=== PATIENT | female | born 1950 | race African-American/Black ===

== ENCOUNTER 2017-07-11 13:35 | Emergency (ER) | payer MEDICARE, MEDICAID ==
[~2017-07-11] VITALS: Ht 165.1 cm; Wt 90.0 kg
[~2017-07-11 13:35] MED LIST: CARI350T27 PO; CLON0.1T PO; CLON2TAB4 PO; CLOP75TA33 PO; FURO40TA5 PO; GLIP5TAB12 PO; KEPPSOL PO; LEVO125T8 PO; LISI-604 PO; METO10TA3 PO; NITR0.4T SL; ONDA4TAB5 PO; PANT40TA4 PO; [UNRECOGNIZED DRUG - CODE] PO
[2017-07-11] MEDS ORDERED: SODIUM CHLORIDE 0.9% 1,000 ML IV ONE (14:32)
[2017-07-11 16:06] LABS: BASOPHILS % 0.7 % (0.0-2.0); EOSINOPHILS % 1.2 % (0.0-5.0); HEMATOCRIT. 33.8 % (36.0-48.0); HEMOGLOBIN. 10.8 g/dL (12.0-16.0); LYMPHOCYTES % 41.7 % (20.0-50.0); MEAN CORPUSCULAR HEMOGLOBIN 23.3 pg (28.0-32.0); MEAN CORPUSCULAR VOLUME 72.9 fL (81.0-99.0); MEAN PLATELET VOLUME 8.1 fl (7.4-10.4); MONOCYTES % 9.1 % (2.0-8.0); NEUTROPHILS % 47.3 % (40.0-76.0); PLATELET 318 x1000/uL (130-400); RED BLOOD CELL COUNT 4.64 mill/uL (4.2-5.4); RED CELL DISTRIBUTION WIDTH 15.5 % (11.6-14.6)
[2017-07-11 16:09] LABS: CHLORIDE 110 mEq/L (98-107)
[2017-07-11 16:16] LABS: AMMONIA 28 uMol/L (<32)
[2017-07-11 16:18] LABS: CARBON DIOXIDE 24 mEq/L (21-32); ETHANOL BLOOD < 10 mg/dL
[2017-07-11 17:08] LABS: CLARITY URINE CLEAR (CLEAR); COLOR URINE YELLOW (YELLOW); GLUCOSE URINE NEGATIVE (NEGATIVE); KETONES URINE NEGATIVE (NEGATIVE); LEUKOCYTE ESTERASE URINE 2+ (NEGATIVE); NITRITE URINE NEGATIVE (NEGATIVE); OCCULT BLOOD URINE TRACE (NEGATIVE); PH URINE 6.5 (4.5-8.0); PROTEIN URINE NEGATIVE (NEGATIVE); SPECIFIC GRAVITY URINE 1.017 (1.005-1.030); UROBILINOGEN URINE 0.2 E.U./dL (0.2-1.0)
[2017-07-11 17:23] LABS: *AMPHETAMINES SCREEN URINE NEGATIVE (NEGATIVE); *BARBITURATES SCREEN URINE NEGATIVE (NEGATIVE); *BENZODIAZEPINES SCREEN URINE NEGATIVE (NEGATIVE); *COCAINE SCREEN URINE NEGATIVE (NEGATIVE); CANNABINOID URINE SCREEN PRESUMTIVE POSITIVE (NEGATIVE); METHADONE URINE SCREEN NEGATIVE (NEGATIVE); OPIATES URINE SCREEN PRESUMTIVE POSITIVE (NEGATIVE); PHENCYCLIDINE URINE SCREEN NEGATIVE (NEGATIVE)
[2017-07-11 21:13] VITALS: BP 180/93
== END 2017-07-11 21:10 | disposition left against medical advice (07) ==
LOC: ER 13:51 → CANBEDREQ 23:23
DX: G93.40 Encephalopathy, unspecified (principal); T40.2X2A Poisoning by other opioids, intentional self-harm, initial encounter; D50.9 Iron deficiency anemia, unspecified; F12.10 Cannabis abuse, uncomplicated; K21.9 Gastro-esophageal reflux disease without esophagitis; E03.9 Hypothyroidism, unspecified; I50.9 Heart failure, unspecified; I11.0 Hypertensive heart disease with heart failure; Z90.49 Acquired absence of other specified parts of digestive tract; Z88.0 Allergy status to penicillin; Z88.6 Allergy status to analgesic agent; Y92.89 Other specified places as the place of occurrence of the external cause
CPT/HCPCS: 36415; 70450; 72125; 80053; 80305; 80307; 80329; 81001; 82140; 82962; 85025; 96360; 96361; 99285; G0482; J7030

== ENCOUNTER 2017-08-17 21:17 | Emergency (ER) | payer MEDICARE, MEDICAID ==
[~2017-08-17] VITALS: Ht 157.5 cm; Wt 90.6 kg
[2017-08-17] MEDS ORDERED: HYDROCODONE/ACETAMINOPHEN 10/325MG TABLET PO ONE (23:15)
[2017-08-18] MEDS ORDERED: HYDROCODONE/ACETAMINOPHEN 10/325MG TABLET PO NR (04:00)
[2017-08-18 06:00] VITALS: BP 138/72
== END 2017-08-18 06:29 | disposition home or self-care (01) ==
LOC: ER 21:17
DX: S83.92XA Sprain of unspecified site of left knee, initial encounter (principal); I10 Essential (primary) hypertension; I25.2 Old myocardial infarction; M19.90 Unspecified osteoarthritis, unspecified site; Z88.0 Allergy status to penicillin; Z86.73 Personal history of transient ischemic attack (TIA), and cerebral infarction without residual deficits; Z88.4 Allergy status to anesthetic agent; Z88.1 Allergy status to other antibiotic agents; Z88.8 Allergy status to other drugs, medicaments and biological substances; Z79.01 Long term (current) use of anticoagulants; W10.9XXA Fall (on) (from) unspecified stairs and steps, initial encounter; Y93.01 Activity, walking, marching and hiking; Y92.89 Other specified places as the place of occurrence of the external cause; Y99.8 Other external cause status
CPT/HCPCS: 29505; 73560; 73590; 73610; 73620; 99284

== ENCOUNTER 2017-09-25 15:23 | Emergency (ER) | payer MEDICARE, MEDICAID ==
[~2017-09-25] VITALS: Ht 160 cm; Wt 60.0 kg
[2017-09-25 15:28] VITALS: BP 137/82
== END 2017-09-25 17:06 | disposition left against medical advice (07) ==
LOC: ER 15:35
DX: G40.909 Epilepsy, unspecified, not intractable, without status epilepticus (principal); Z86.73 Personal history of transient ischemic attack (TIA), and cerebral infarction without residual deficits; I25.2 Old myocardial infarction; Z88.6 Allergy status to analgesic agent; Z88.5 Allergy status to narcotic agent; Z88.8 Allergy status to other drugs, medicaments and biological substances; Z88.0 Allergy status to penicillin; Z88.1 Allergy status to other antibiotic agents
CPT/HCPCS: 99283

== ENCOUNTER 2018-06-27 14:59 | Inpatient (IN) | payer MEDICARE, MEDICAID ==
[~2018-06-27] VITALS: Ht 157.5 cm; Wt 89.8 kg
[~2018-06-27 14:59] MED LIST changes: +CLON2TAB11 PO; -CLON2TAB4 PO
[2018-06-27] MEDS ORDERED: SODIUM CHLORIDE 0.9% 1,000 ML IV ONE (15:36)
[2018-06-27 16:51] LABS: BASOPHILS % 0.6 % (0.0-2.0); EOSINOPHILS % 0.2 % (0.0-5.0); HEMATOCRIT. 44.5 % (36.0-48.0); HEMOGLOBIN. 14.3 g/dL (12.0-16.0); LYMPHOCYTES % 32.7 % (20.0-50.0); MEAN CORPUSCULAR HEMOGLOBIN 24.9 pg (28.0-32.0); MEAN CORPUSCULAR VOLUME 77.8 fL (81.0-99.0); MEAN PLATELET VOLUME 8.4 fl (7.4-10.4); MONOCYTES % 7.2 % (2.0-8.0); NEUTROPHILS % 59.3 % (40.0-76.0); PLATELET 281 x1000/uL (130-400); RED BLOOD CELL COUNT 5.72 mill/uL (4.2-5.4)
[2018-06-27 16:54] LABS: CHLORIDE 105 mEq/L (98-107)
[2018-06-27 16:55] LABS: PROTHROMBIN TIME 10.3 sec (9.1-11.1)
[2018-06-27 16:59] LABS: ETHANOL BLOOD < 10 mg/dL
[2018-06-27 17:05] LABS: PHENOBARBITAL < 2.1 ug/mL (15.0-40.0); VALPROIC ACID < 3.0 ug/mL (50-100)
[2018-06-27 17:14] LABS: CARBAMAZEPINE < 0.5 ug/mL (4-12)
[2018-06-27] MEDS ORDERED: LEVETIRACETAM 500MG PREMIX 100 ML IV ONE (17:30)
[2018-06-27] MEDS ORDERED: ONDANSETRON HCL 4MG/2ML INJ IV ONE (17:30)
[2018-06-27] MEDS ORDERED: MORPHINE SULFATE 2 MG/ML CPJ (NOT FOR IM USE) IV ONE (17:30)
[2018-06-27] MEDS ORDERED: LORAZEPAM 2MG/ML CPJ IV PRN (18:00)
[2018-06-27] MEDS ORDERED: NA PHOS,M-B/NA PHOS,DI-BA ENEMA 118ML PR PRN (18:00)
[2018-06-27] MEDS ORDERED: MAGNESIUM/ALUMINUM HYDROXIDE/SIMETHICONE 30ML UDC PO PRN (18:00)
[2018-06-27] MEDS ORDERED: ACETAMINOPHEN 325MG TABLET PO PRN (18:00)
[2018-06-27] MEDS ORDERED: GUAIFENESIN 200MG/10ML SUGAR FREE UDC PO PRN (18:00)
[2018-06-27] MEDS ORDERED: DEXTROSE 50% WATER 50ML SYRINGE IV PRN (18:00)
[2018-06-27 19:10] LABS: CLARITY URINE CLEAR (CLEAR); COLOR URINE YELLOW (YELLOW); KETONES URINE 2+ (NEGATIVE); LEUKOCYTE ESTERASE URINE 1+ (NEGATIVE); NITRITE URINE NEGATIVE (NEGATIVE); OCCULT BLOOD URINE NEGATIVE (NEGATIVE); PH URINE 5.5 (4.5-8.0); PROTEIN URINE 2+ (NEGATIVE); SPECIFIC GRAVITY URINE 1.035 (1.005-1.030)
[2018-06-27 19:25] LABS: *AMPHETAMINES SCREEN URINE NEGATIVE (NEGATIVE); *BARBITURATES SCREEN URINE NEGATIVE (NEGATIVE)
[2018-06-27 19:26] LABS: *BENZODIAZEPINES SCREEN URINE NEGATIVE (NEGATIVE); *COCAINE SCREEN URINE NEGATIVE (NEGATIVE); CANNABINOID URINE SCREEN PRESUMTIVE POSITIVE (NEGATIVE); METHADONE URINE SCREEN NEGATIVE (NEGATIVE); OPIATES URINE SCREEN NEGATIVE (NEGATIVE); PHENCYCLIDINE URINE SCREEN NEGATIVE (NEGATIVE)
[2018-06-27] MEDS: INSULIN LISPRO 100 UNITS/ML SUBCUT SCH (21:00)
[2018-06-27] MEDS: BLOOD SUGAR DIAGNOSTIC STRIP TEST SCH (21:00)
[2018-06-27] MEDS ORDERED: NITROGLYCERIN 0.4MG TABLET SL SL PRN (21:00)
[2018-06-27 21:44] VITALS: BP 160/95
[2018-06-27 22:00] VITALS: BP 160/95
[2018-06-27] MEDS ORDERED: PHENYTOIN SODIUM 1,000 MG in SODIUM CHLORIDE 0.9% 100 ML IV SCH (22:00)
[2018-06-27] MEDS: CLONIDINE 0.1MG TABLET PO PRN (23:10)
[2018-06-27] MEDS: ASCORBIC ACID 500 MG TABLET PO SCH (23:10)
[2018-06-27] MEDS: FAMOTIDINE 20MG TABLET PO SCH (23:10)
[2018-06-27] MEDS: ENOXAPARIN 40MG/0.4ML SYR SUBCUT SCH (23:11)
[2018-06-27] MEDS: MORPHINE SULFATE 4 MG/ML CPJ (NOT FOR IM USE) IV PRN (23:18)
[2018-06-27 23:41] LABS: CREATINE KINASE MB FRACTION 5.1 ng/mL (0.5-3.6)
[2018-06-27] MEDS: ZOLPIDEM TARTRATE 5MG TABLET PO PRN (23:45)
[2018-06-28 00:47] VITALS: BP 188/94
[2018-06-28] MEDS ORDERED: LEVE500T19 PO (04:16)
[2018-06-28] MEDS ORDERED: FERR325T6 PO (04:16)
[2018-06-28] MEDS ORDERED: DIPH25TA23 PO (04:16)
[2018-06-28 04:30] VITALS: BP 160/82
[2018-06-28] MEDS: CLONIDINE 0.1MG TABLET PO PRN (06:11)
[2018-06-28] MEDS: BLOOD SUGAR DIAGNOSTIC STRIP TEST SCH ×4 (06:55→22:16)
[2018-06-28 08:00] VITALS: BP 135/81
[2018-06-28] MEDS: INSULIN LISPRO 100 UNITS/ML SUBCUT SCH ×4 (08:10→22:16)
[2018-06-28] MEDS ORDERED: LEVETIRACETAM 500MG PREMIX 100 ML IV SCH (09:00)
[2018-06-28] MEDS: ASCORBIC ACID 500 MG TABLET PO SCH ×2 (09:01→22:17)
[2018-06-28] MEDS: CLOPIDOGREL 75MG TABLET PO SCH (09:01)
[2018-06-28] MEDS: FAMOTIDINE 20MG TABLET PO SCH ×2 (09:01→22:17)
[2018-06-28] MEDS: ONDANSETRON HCL 4MG/2ML INJ IV PRN (09:01)
[2018-06-28] MEDS: ZINC SULFATE 220 MG ( 50 ) CAPSULE PO SCH (09:01)
[2018-06-28 09:04] LABS: CREATINE KINASE MB FRACTION 4.3 ng/mL (0.5-3.6)
[2018-06-28] MEDS: MORPHINE SULFATE 4 MG/ML CPJ (NOT FOR IM USE) IV PRN ×2 (09:05→17:45)
[2018-06-28] MEDS: LEVETIRACETAM 500 MG in SODIUM CHLORIDE 0.9% 100 ML IV SCH ×2 (09:05→22:21)
[2018-06-28 12:00] VITALS: BP 131/89
[2018-06-28 16:00] VITALS: BP 149/77
[2018-06-28] MEDS: SUCRALFATE 1 G/10 ML UDC PO SCH ×2 (17:25→22:17)
[2018-06-28] MEDS: METOCLOPRAMIDE HCL 10MG TABLET PO SCH ×2 (17:25→22:17)
[2018-06-28 20:00] VITALS: BP 154/92
[2018-06-28] MEDS: DIPHENHYDRAMINE 50MG/ML VIAL IV PRN (21:13)
[2018-06-28] MEDS: ENOXAPARIN 40MG/0.4ML SYR SUBCUT SCH (22:18)
[2018-06-29] VITALS: BP 145/80
[2018-06-29] MEDS: ZOLPIDEM TARTRATE 5MG TABLET PO PRN (00:02)
[2018-06-29] MEDS: MORPHINE SULFATE 4 MG/ML CPJ (NOT FOR IM USE) IV PRN ×4 (00:37→20:22)
[2018-06-29 04:00] VITALS: BP 188/89
[2018-06-29] MEDS: DIPHENHYDRAMINE 50MG/ML VIAL IV PRN ×4 (04:28→20:21)
[2018-06-29] MEDS: BLOOD SUGAR DIAGNOSTIC STRIP TEST SCH ×4 (06:41→20:23)
[2018-06-29] MEDS: INSULIN LISPRO 100 UNITS/ML SUBCUT SCH ×4 (06:42→20:23)
[2018-06-29] MEDS: CLONIDINE 0.1MG TABLET PO PRN ×2 (06:46→12:33)
[2018-06-29] MEDS: SUCRALFATE 1 G/10 ML UDC PO SCH ×4 (07:55→20:21)
[2018-06-29] MEDS: METOCLOPRAMIDE HCL 10MG TABLET PO SCH ×4 (07:56→20:21)
[2018-06-29 08:00] VITALS: BP_SYST 156; BP_SYST 177; BP_DIAS 101; BP_DIAS 72
[2018-06-29] MEDS: ZINC SULFATE 220 MG ( 50 ) CAPSULE PO SCH (08:53)
[2018-06-29] MEDS: FAMOTIDINE 20MG TABLET PO SCH ×2 (08:53→20:21)
[2018-06-29] MEDS: ASCORBIC ACID 500 MG TABLET PO SCH ×2 (08:53→20:21)
[2018-06-29] MEDS: CLOPIDOGREL 75MG TABLET PO SCH (08:53)
[2018-06-29] MEDS: LEVETIRACETAM 500 MG in SODIUM CHLORIDE 0.9% 100 ML IV SCH ×2 (08:53→21:31)
[2018-06-29 12:00] VITALS: BP 186/90
[2018-06-29] MEDS: CARISOPRODOL 350 MG TABLET PO PRN (12:33)
[2018-06-29] MEDS: LEVOTHYROXINE SODIUM 125MCG TABLET PO SCH (12:42)
[2018-06-29 16:00] VITALS: BP 147/82
[2018-06-29 20:00] VITALS: BP 160/97
[2018-06-29] MEDS: ONDANSETRON HCL 4MG/2ML INJ IV PRN (20:32)
[2018-06-29] MEDS: ENOXAPARIN 40MG/0.4ML SYR SUBCUT SCH (21:31)
[2018-06-30] VITALS: BP 179/95
[2018-06-30] MEDS: CARISOPRODOL 350 MG TABLET PO PRN ×3 (00:35→23:24)
[2018-06-30] MEDS: CLONIDINE 0.1MG TABLET PO PRN ×3 (00:41→23:35)
[2018-06-30 04:00] VITALS: BP 149/94
[2018-06-30] MEDS: MORPHINE SULFATE 4 MG/ML CPJ (NOT FOR IM USE) IV PRN ×3 (06:41→21:45)
[2018-06-30] MEDS: DIPHENHYDRAMINE 50MG/ML VIAL IV PRN ×2 (06:42→17:32)
[2018-06-30] MEDS: METOCLOPRAMIDE HCL 10MG TABLET PO SCH ×4 (06:42→21:45)
[2018-06-30] MEDS: SUCRALFATE 1 G/10 ML UDC PO SCH ×4 (06:42→21:45)
[2018-06-30] MEDS: LEVOTHYROXINE SODIUM 125MCG TABLET PO SCH (06:42)
[2018-06-30] MEDS: BLOOD SUGAR DIAGNOSTIC STRIP TEST SCH ×4 (06:42→21:00)
[2018-06-30 08:00] VITALS: BP 173/94
[2018-06-30] MEDS: INSULIN LISPRO 100 UNITS/ML SUBCUT SCH ×4 (08:10→21:00)
[2018-06-30] MEDS: FAMOTIDINE 20MG TABLET PO SCH ×2 (09:00→21:45)
[2018-06-30] MEDS: ASCORBIC ACID 500 MG TABLET PO SCH ×2 (09:00→21:45)
[2018-06-30] MEDS: ZINC SULFATE 220 MG ( 50 ) CAPSULE PO SCH (09:00)
[2018-06-30] MEDS: CLOPIDOGREL 75MG TABLET PO SCH (09:00)
[2018-06-30] MEDS: LEVETIRACETAM 500 MG in SODIUM CHLORIDE 0.9% 100 ML IV SCH ×2 (09:41→21:46)
[2018-06-30] MEDS ORDERED: LIDOCAINE HCL 1% 20ML VIAL (Pyxis) INJ ONE (11:12)
[2018-06-30] MEDS ORDERED: GLUCAGON,HUMAN RECOMBINANT 1MG/VIAL IM SCH (11:15)
[2018-06-30] MEDS ORDERED: NON FORMULARY PATIENT HOME MED EA XX SCH (11:15)
[2018-06-30] MEDS ORDERED: EZ-HD SUSPENSION(BARIUM SULFATE 340GM) PO ONE (11:48)
[2018-06-30 12:00] VITALS: BP 144/93
[2018-06-30 16:00] VITALS: BP_SYST 129; BP_SYST 178; BP_DIAS 63; BP_DIAS 92
[2018-06-30 20:00] VITALS: BP 166/90
[2018-06-30] MEDS: ENOXAPARIN 40MG/0.4ML SYR SUBCUT SCH (21:46)
[2018-07-01] VITALS: BP 173/99
[2018-07-01] MEDS: DIPHENHYDRAMINE 50MG/ML VIAL IV PRN ×3 (00:01→19:47)
[2018-07-01] MEDS: MORPHINE SULFATE 4 MG/ML CPJ (NOT FOR IM USE) IV PRN ×2 (03:51→14:59)
[2018-07-01 04:00] VITALS: BP 160/90
[2018-07-01] MEDS: BLOOD SUGAR DIAGNOSTIC STRIP TEST SCH ×4 (07:12→20:49)
[2018-07-01] MEDS: SUCRALFATE 1 G/10 ML UDC PO SCH ×4 (07:40→20:36)
[2018-07-01] MEDS: METOCLOPRAMIDE HCL 10MG TABLET PO SCH ×4 (07:40→20:36)
[2018-07-01 08:00] VITALS: BP 138/87
[2018-07-01] MEDS: INSULIN LISPRO 100 UNITS/ML SUBCUT SCH ×4 (08:02→21:14)
[2018-07-01] MEDS ORDERED: EZ-HD SUSPENSION(BARIUM SULFATE 340GM) PO ONE (09:45)
[2018-07-01] MEDS: LEVETIRACETAM 500 MG in SODIUM CHLORIDE 0.9% 100 ML IV SCH ×2 (11:21→21:03)
[2018-07-01 12:00] VITALS: BP 149/94
[2018-07-01] MEDS: FAMOTIDINE 20MG TABLET PO SCH ×2 (14:34→20:36)
[2018-07-01] MEDS: ASCORBIC ACID 500 MG TABLET PO SCH ×2 (14:35→20:35)
[2018-07-01] MEDS: CLOPIDOGREL 75MG TABLET PO SCH (14:35)
[2018-07-01] MEDS: ZINC SULFATE 220 MG ( 50 ) CAPSULE PO SCH (14:35)
[2018-07-01] MEDS: LEVOTHYROXINE SODIUM 125MCG TABLET PO SCH (14:35)
[2018-07-01] MEDS: CLONIDINE 0.1MG TABLET PO PRN (15:15)
[2018-07-01 16:00] VITALS: BP 149/99
[2018-07-01] MEDS: ONDANSETRON HCL 4MG/2ML INJ IV PRN (16:22)
[2018-07-01] MEDS: CARISOPRODOL 350 MG TABLET PO PRN (16:22)
[2018-07-01 20:00] VITALS: BP 154/83
[2018-07-01] MEDS: ENOXAPARIN 40MG/0.4ML SYR SUBCUT SCH (20:36)
[2018-07-01] MEDS: ZOLPIDEM TARTRATE 5MG TABLET PO PRN (23:14)
[2018-07-02] VITALS: BP 155/105
[2018-07-02 04:00] VITALS: BP 146/92
[2018-07-02] MEDS: DIPHENHYDRAMINE 50MG/ML VIAL IV PRN ×3 (05:03→20:33)
[2018-07-02] MEDS: BLOOD SUGAR DIAGNOSTIC STRIP TEST SCH ×4 (05:24→20:26)
[2018-07-02] MEDS: CARISOPRODOL 350 MG TABLET PO PRN (06:16)
[2018-07-02] MEDS: DOCUSATE SODIUM 100MG CAPSULE PO PRN (06:16)
[2018-07-02 08:00] VITALS: BP 150/91
[2018-07-02] MEDS: INSULIN LISPRO 100 UNITS/ML SUBCUT SCH ×4 (08:08→20:27)
[2018-07-02] MEDS: ASCORBIC ACID 500 MG TABLET PO SCH ×2 (08:20→20:26)
[2018-07-02] MEDS: MORPHINE SULFATE 4 MG/ML CPJ (NOT FOR IM USE) IV PRN (08:20)
[2018-07-02] MEDS: LEVOTHYROXINE SODIUM 125MCG TABLET PO SCH (08:20)
[2018-07-02] MEDS: METOCLOPRAMIDE HCL 10MG TABLET PO SCH ×4 (08:20→20:26)
[2018-07-02] MEDS: CLOPIDOGREL 75MG TABLET PO SCH (08:20)
[2018-07-02] MEDS: LEVETIRACETAM 500 MG in SODIUM CHLORIDE 0.9% 100 ML IV SCH (08:20)
[2018-07-02] MEDS: FAMOTIDINE 20MG TABLET PO SCH ×2 (08:20→20:26)
[2018-07-02] MEDS: ZINC SULFATE 220 MG ( 50 ) CAPSULE PO SCH (08:20)
[2018-07-02] MEDS: SUCRALFATE 1 G/10 ML UDC PO SCH ×4 (08:26→20:33)
[2018-07-02] MEDS: CLONIDINE 0.1MG TABLET PO PRN (11:06)
[2018-07-02 12:00] VITALS: BP 138/78
[2018-07-02] MEDS: LISINOPRIL 20MG TABLET PO SCH (14:25)
[2018-07-02] MEDS: CLONIDINE 0.1MG TABLET PO SCH (14:25)
[2018-07-02 16:00] VITALS: BP 117/78
[2018-07-02] MEDS: MULTIVITAMINS,THER W-MINERALS TABLET PO SCH (17:14)
[2018-07-02] MEDS: FOLIC ACID 1MG TABLET PO SCH (17:14)
[2018-07-02] MEDS: THIAMINE HCL 100MG TABLET PO SCH (17:14)
[2018-07-02] MEDS: ZONISAMIDE 100MG CAPSULE PO SCH (17:14)
[2018-07-02 20:00] VITALS: BP 128/81
[2018-07-02] MEDS ORDERED: LORAZEPAM 2MG/ML CPJ IV PRN (20:15)
[2018-07-02] MEDS: ENOXAPARIN 40MG/0.4ML SYR SUBCUT SCH (20:27)
[2018-07-02] MEDS: LEVETIRACETAM 750 MG in SODIUM CHLORIDE 0.9% 100 ML IV SCH (21:13)
[2018-07-03 04:00] VITALS: BP 119/76
[2018-07-03] MEDS: DIPHENHYDRAMINE 50MG/ML VIAL IV PRN ×3 (04:29→13:03)
[2018-07-03] MEDS: BLOOD SUGAR DIAGNOSTIC STRIP TEST SCH ×2 (07:58→13:11)
[2018-07-03] MEDS: INSULIN LISPRO 100 UNITS/ML SUBCUT SCH ×2 (07:59→13:10)
[2018-07-03 08:00] VITALS: BP 128/77
[2018-07-03] MEDS: DOCUSATE SODIUM 100MG CAPSULE PO PRN (08:49)
[2018-07-03] MEDS: METOCLOPRAMIDE HCL 10MG TABLET PO SCH (08:49)
[2018-07-03] MEDS: FAMOTIDINE 20MG TABLET PO SCH (08:49)
[2018-07-03] MEDS: LEVOTHYROXINE SODIUM 125MCG TABLET PO SCH (08:49)
[2018-07-03] MEDS: LISINOPRIL 20MG TABLET PO SCH (08:50)
[2018-07-03] MEDS: MULTIVITAMINS,THER W-MINERALS TABLET PO SCH (08:50)
[2018-07-03] MEDS: SUCRALFATE 1 G/10 ML UDC PO SCH (08:50)
[2018-07-03] MEDS: ASCORBIC ACID 500 MG TABLET PO SCH (08:50)
[2018-07-03] MEDS ORDERED: MEDICATION NOT ON FORMULARY EA (Lisinopril 20 MG) PO SCH (09:00)
[2018-07-03] MEDS ORDERED: DOCUSATE SODIUM 250MG CAPSULE PO SCH (09:00)
[2018-07-03] MEDS ORDERED: MEDICATION NOT ON FORMULARY EA (Clopidogrel Bisulfate (Clopidogrel) 1 TAB) PO SCH (09:00)
[2018-07-03 10:35] VITALS: BP 150/88
[2018-07-03] MEDS: FOLIC ACID 1MG TABLET PO SCH (10:36)
[2018-07-03] MEDS: THIAMINE HCL 100MG TABLET PO SCH (10:36)
[2018-07-03] MEDS: CLOPIDOGREL 75MG TABLET PO SCH (10:37)
[2018-07-03] MEDS: CLONIDINE 0.1MG TABLET PO SCH (10:56)
[2018-07-03] MEDS: ZONISAMIDE 100MG CAPSULE PO SCH (10:56)
[2018-07-03] MEDS: ZINC SULFATE 220 MG ( 50 ) CAPSULE PO SCH (11:41)
[2018-07-03] MEDS: LEVETIRACETAM 750 MG in SODIUM CHLORIDE 0.9% 100 ML IV SCH (11:42)
[2018-07-03 12:00] VITALS: BP 133/70
[2018-07-03 12:09] VITALS: BP 133/70
[2018-07-03 16:00] VITALS: BP 160/101
== END 2018-07-03 18:55 | disposition home health service (06) | DRG 53 ==
LOC: ER 14:59 → EDBEDREQTM 17:49 → EDBEDREQ 17:49 → ENRESERV 19:58 → 7WST 21:23
PROVIDERS: ADMIT Internal Medicine; ATTEND Internal Medicine
PROC: 05H533Z Insertion of Infusion Device into Right Subclavian Vein, Percutaneous Approach (ICD-10-PCS; principal; 2018-06-30)
PROC: B5161ZA Fluoroscopy of Right Subclavian Vein using Low Osmolar Contrast, Guidance (ICD-10-PCS; 2018-06-30)
PROC: B546ZZA Ultrasonography of Right Subclavian Vein, Guidance (ICD-10-PCS; 2018-06-30)
PROC: BD11YZZ Fluoroscopy of Esophagus using Other Contrast (ICD-10-PCS; 2018-07-01)
DX: G40.909 Epilepsy, unspecified, not intractable, without status epilepticus (principal); F20.9 Schizophrenia, unspecified; G93.89 Other specified disorders of brain; I10 Essential (primary) hypertension; R47.02 Dysphasia; R26.9 Unspecified abnormalities of gait and mobility; E11.9 Type 2 diabetes mellitus without complications; E03.9 Hypothyroidism, unspecified; K29.70 Gastritis, unspecified, without bleeding; M19.90 Unspecified osteoarthritis, unspecified site; R13.10 Dysphagia, unspecified; R74.8 Abnormal levels of other serum enzymes; I25.2 Old myocardial infarction; Z79.02 Long term (current) use of antithrombotics/antiplatelets; Z79.4 Long term (current) use of insulin; Z86.010 Personal history of colon polyps; Z86.73 Personal history of transient ischemic attack (TIA), and cerebral infarction without residual deficits; Z91.19 Patient's noncompliance with other medical treatment and regimen; Z88.8 Allergy status to other drugs, medicaments and biological substances; Z88.6 Allergy status to analgesic agent; Z79.899 Other long term (current) drug therapy
CPT/HCPCS: 36415; 36569; 70450; 70551; 74220; 76937; 77001; 80053; 80061; 80156; 80165; 80184; 80185; 80305; 81003; 82542; 82550; 82553; 82962; 83036; 84484; 85025; 85610; 93005; 96365; 96375; 97116; 97162; 97530; 97535; 99285; C1725; C1893; G0482; J1165; J1200; J1610; J1650; J1815; J1953; J2060; J2270; J2405; J3490; J7030; J7050; J8597